=== PATIENT | male | born 1965 | race Caucasian/White ===

== ENCOUNTER 2025-07-29 12:15 | Day surgery (SDC) | payer BC ==
--- NOTE | 2025-07-22 11:56 | ELECTROCARDIOGRAPH REPORT ---
[facility] Test Date: 2025-07-22 Test Time: 11:54:37 Pat Name: JEAN CARLOS ARRIAGA Department: [facility]-PRE-OP Patient ID: [id number] Room: Gender: M Host/Hostess Restaurant: claudio : 1965 Requested By: JAIME MAYS Order Number: [id number] Reading MD: Dr. JEN Lake Measurements Intervals [place] Rate: 53 P: 38 NV: 206 QRS: 1 QRSD: 108 T: 33 QT: 423 QTc: 398 Interpretive Statements Sinus bradycardia RSR' in V1 or V2, right VCD or RVH Minimal ST elevation, anterior leads Electronically Signed On 07-23-2025 19:47:[address] JEN Lake Please click the below link to view image of tracing.
[2025-07-22 12:22] LABS: MEAN PLATELET VOLUME 7.8 FL (7.4-10.4); PRE OP HEMATOCRIT 41.8 % (42.0-52.0); PRE OP HEMOGLOBIN 14.2 g/dL (14.0-17.9); PRE OP PLATELET COUNT 256 X10'3 (140-440); PRE OP WHITE BLOOD COUNT 7.7 10'3 (4.8-10.8); RED CELL DISTRIBUTION WIDTH 14.0 % (11.5-14.5)
[2025-07-22 12:50] LABS: CREATININE 0.78 MG/DL (0.60-1.10); PRE OP ALT 35 U/L (30-65); PRE OP ANION GAP 6 (8-16); PRE OP AST 19 U/L (10-37); PRE OP BILIRUB, TOTAL 0.3 MG/DL (0.0-1.0); PRE OP GLUCOSE 88 MG/DL (70-104); PRE OP POTASSIUM 4.4 MMOL/L (3.4-5.1); PRE OP SODIUM 139 MMOL/L (135-145); TOTAL CARBON DIOXIDE 29.1 MMOL/L (24-32); eGFR > 90 ML/MIN
[2025-07-29] VITALS (14 sets, daily range): BP systolic 112–146; BP diastolic 72–95; PULSE 63–113; RESP 9–16; TEMP 98.3; O2SAT 95–98
[~2025-07-29] VITALS: Ht 180.3 cm; Wt 88.1 kg
[2025-07-29] MEDS: ceFAZolin 2gm/dext,iso 50mL 50 ML IV ONE (05:30)
[~2025-07-29 12:15] MED LIST: RESCUE INHALER
[2025-07-29] MEDS: ringers solution, lacted 1,000 ML IV SCH (12:58)
[2025-07-29] MEDS ORDERED: LIDOcaine 1% 30ml preserv. free vial ONE (13:09)
[2025-07-29] MEDS ORDERED: BUPIVAcaine/PF 2.5mg/ml (0.25%) 10ml vial ONE (13:09)
[2025-07-29] MEDS ORDERED: midazolam 1 mg/ML 2ml injection ONE (14:15)
[2025-07-29] MEDS ORDERED: labetalol 20mg/4ml (5mg/ml) syringe IV PRN (14:30)
[2025-07-29] MEDS ORDERED: ondansetron/PF 4mg/2ml inj IV PRN (14:30)
[2025-07-29] MEDS ORDERED: hydrALAZINE 20mg/ml inj. IV PRN (14:30)
[2025-07-29] MEDS ORDERED: morphine 4 MG/ML inj SYRINge IV PRN (14:30)
[2025-07-29] MEDS ORDERED: HYDROmorphone/PF 0.2 MG/ML SYRINGE IV PRN ×2 (14:30)
[2025-07-29] MEDS ORDERED: ringers solution, lacted 1,000 ML IV SCH (14:30)
[2025-07-29] MEDS ORDERED: fentaNYL /PF 50mcg/ml 5ml ampule ONE (14:44)
[2025-07-29] MEDS ORDERED: LIDOcaine 2% (20mg/ml) 5ml vial ONE (14:45)
[2025-07-29] MEDS ORDERED: ePHEDrine 50MG/ML INJ. ONE (14:45)
[2025-07-29] MEDS ORDERED: propofol inj 20 ML IV ONE (14:45)
[2025-07-29] MEDS ORDERED: dexamethasone sod phosphate 4mg/ml inj. ONE (14:45)
[2025-07-29] MEDS ORDERED: rocuronium 10mg/ml inj IV ONE (14:45)
[2025-07-29] MEDS ORDERED: ondansetron/PF 4mg/2ml inj ONE (14:46)
[2025-07-29] MEDS ORDERED: glycopyrrolate 0.2mg/ml inj ONE (15:17)
[2025-07-29] MEDS: acetaminophen 1,000mg/100ml IV 100 ML IV PRN (15:50)
--- NOTE | 2025-07-29 15:52 | OPERATIVE REPORT ---
Operative Report Providers to CC CC: NAZARIO MAYS MD ~ Date of Procedure: Jul 29, 2025 Pre-Operative Diagnosis: Right inguinal hernia Post-Operative Diagnosis SAME as PRE-Op Procedure Performed Robotic assisted, laparoscopic right inguinal hernia repair with mesh Surgeon: Nazario Mays MD FACS Fine Grade Bulldozer Operator None Anesthesiologist: Maxwell Sultana Type of Anesthesia: General Findings: Kioqecle-dd-ddwyw indirect right inguinal hernia False hernia sac attached to the spermatic cord with a small bleeding from traction on the cord during reduction of hernia sac Wound class I Complications None Prosthetics\Implants used: Large right Dextile mesh Estimated Blood Loss: Less than 10 cc Specimen Removed: None Description of Procedure: Patient was brought to the operating room and identified by the nursing staff and the attending physician. Patient was placed supine and general anesthesia was induced. Patient's abdomen was prepped and draped in standard sterile fashion. Preoperative antibiotics were given. Supraumbilical incision was made to allow for standard Brown entry technique.Laparoscope was inserted after insufflation. Bilateral, 8.5 mm robotic trochars were placed under laparoscopic guidance following administration of local anesthetic. The da Joaquin robotic arm was docked to the patient and instruments placed intra-abdominally under laparoscopic visualization. The left hemipelvis was examined and showed no linda dence of left inguinal hernia. Preperitoneal flap was created and carried down to the symphysis pubis. The retropubic space of Retzius was developed and the bladder swept medially. Dissection was carried out laterally until a moderate-sized direct right inguinal hernia sac was identified. This was moderate in size. Hernia sac was completely mobilized and reduced. During reduction, the false hernia sac was noted to be densely adherent to the spermatic cord. This was not realized until there was a small traction injury to the cord were there was some bleeding from the apparent testicular vein. With a small amount of electrocautery, this subsided. Peritoneum was completely dissected away from the cord structures The critical view of the myopectineal orifice was achieved. Dissection was carried out laterally to allow space for mesh deployment. A large right Dextile mesh and suture was passed intra-abdominally. Mesh was laid in the preperitoneal space covering both indirect, direct, and potential femoral and obturator hernias. Mesh laid without wrinkles or folds. 3 tacking sutures using 0 Ethibond were used to fix the mesh at the symphysis pubis, rectus abdominis, and just anterior to the anterior superior iliac spine. The peritoneal rent was then closed with running, 2/0, absorbable locking suture. [place] were retrieved. Abdomen was deflated and secondary trochars removed. Fascia at the umbilical port site was closed with 0 Vicryl sutures. Skin incisions were closed with 4-0 Monocryl sutures in a subcuticular fashion. Sterile dressings were applied. Patient was awakened and taken to the postanesthesia care unit in stable condition. Counts repoted as correct: Yes NAZARIO MAYS MD Jul 29, 2025 15:52
[2025-07-29] MEDS: HYDROcodone/acetaminophen 5mg/325mg tablet PO PRN (17:24)
== END 2025-07-29 17:49 | disposition home or self-care (01) ==
LOC: OR 12:15
PROVIDERS: ATTEND Surgery
DX: K40.90 Unilateral inguinal hernia, without obstruction or gangrene, not specified as recurrent (principal); J45.909 Unspecified asthma, uncomplicated; Z79.899 Other long term (current) drug therapy; Z98.890 Other specified postprocedural states
CPT/HCPCS: 36415; 49650; 80053; 82948; 85025; 93005; C1781; J0131; J0690; J1100; J2003; J2250; J2270; J2405; J2704; J2710; J3010; J3490; J7030; J7120; S2900; Z7506; Z7508; Z7512; A4215; A4618